=== PATIENT | female | born 1945 | race Caucasian/White ===

== ENCOUNTER 2020-03-18 11:31 | Outpatient (CLI) | payer MEDICARE, BC ==
[~2020-03-18 11:31] MED LIST: ASPI-524 PO; ERGO500014 PO; GLUC1CAP69 PO; LACT1CAP61 PO; [UNRECOGNIZED DRUG - CODE] PO
== END 2020-03-18 23:59 | disposition home or self-care (01) ==
LOC: RAD 11:31
DX: R91.8 Other nonspecific abnormal finding of lung field (principal); I77.810 Thoracic aortic ectasia; M47.819 Spondylosis without myelopathy or radiculopathy, site unspecified
CPT/HCPCS: 71046

== ENCOUNTER 2020-12-17 14:11 | Emergency (ER) | payer MEDICARE, BC ==
[~2020-12-17] VITALS: Ht 157.5 cm; Wt 65.8 kg
--- NOTE | 2020-12-17 14:25 | NUR ---
CALLED IN ED WAITING ROOM. NO RESPONSE.
--- NOTE | 2020-12-17 14:46 | NUR ---
DR DAMICO AT THE BEDSIDE
--- NOTE | 2020-12-17 14:48 | NUR ---
CODE STROKE ACTIVATED
--- NOTE | 2020-12-17 14:48 | NUR ---
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 DENIES HEAD INJURY. ATTACHED TO THE MONITOR.
--- NOTE | 2020-12-17 14:54 | NUR ---
PATIENT TAKEN TO CT
[2020-12-17] MEDS ORDERED: IOHEXOL-350 100 ML VIAL IV ONE (14:55)
[2020-12-17] MEDS ORDERED: IV NS 0.9% 250 ML IV ONE (14:56)
[2020-12-17] MEDS ORDERED: CT SWABBABLE VALVE TRANS SET 1 EA INFUS.SET MC ONE (14:56)
[2020-12-17 14:58] LABS: BASOPHILS # (AUTO) 0.1 K/uL (0.0-0.2); BASOPHILS % (AUTO) 0.9 % (0.0-2.0); HEMATOCRIT 41 % (33-45); HEMOGLOBIN 13.3 g/dL (11.5-14.8); LYMPHOCYTES # (AUTO) 2.5 K/uL (0.8-4.8); LYMPHOCYTES % (AUTO) 35.6 % (20.0-44.0); MEAN CORPUSCULAR HGB CONC 33 g/dl (31.0-36.0); MEAN CORPUSCULAR VOLUME 95 fL (82-100); MONOCYTES # (AUTO) 0.6 K/uL (0.1-1.30); MONOCYTES % (AUTO) 8.4 % (2.0-12.0); NEUTROPHILS # (AUTO) 3.8 K/uL (1.8-8.9); NEUTROPHILS % (AUTO) 53.1 % (43.0-81.0); PLATELET COUNT (AUTO) 242 K/uL (150-450); RED BLOOD CELL COUNT(AUTO) 4.28 MIL/uL (4.0-5.2); WHITE BLOOD COUNT (AUTO) 7.1 K/uL (4.3-11.0)
[2020-12-17 15:09] LABS: CALCIUM, SERUM 9.1 mg/dL (8.5-10.1); CARBON DIOXIDE 27 mmol/L (21-32); CHLORIDE 107 mmol/L (98-107); CREATININE 0.7 mg/dL (0.6-1.3); GLUCOSE 97 mg/dL (74-106); POTASSIUM 4.2 mmol/L (3.5-5.1); SODIUM SERUM 144 mmol/L (136-145); UREA NITROGEN, BLOOD 18 mg/dL (7-18)
--- NOTE | 2020-12-17 15:09 | NUR ---
DR HOYOS (NEURO) ASSESSING THE PATIENT.
--- NOTE | 2020-12-17 15:09 | NUR ---
THE PATIENT IS BACK FROM CT
--- NOTE | 2020-12-17 15:29 | NUR ---
THE PATIENT REFUSES VITAL SIGNS CHECK DESPITE EXPLAINING RISKS AND BENEFITS.
--- NOTE | 2020-12-17 16:13 | NUR ---
THE PATIENT REFUSES VITAL SIGNS CHECK DESPITE EXPLAINING RISKS AND BENEFITS
[2020-12-17 16:56] LABS: CHOLESTEROL 255 mg/dL (<200); HDL CHOLESTEROL 114 mg/dL (40-60); LDL 125 mg/dL (0-99); TRIGLYCERIDES 55 mg/dL (30-150)
--- NOTE | 2020-12-17 17:22 | NUR ---
THE PATIENT REFUSES VITAL SIGNS CHECK DESPITE EXPLAINING RISKS AND BENEFITS
--- NOTE | 2020-12-17 17:59 | NUR ---
Patient eloped from facility. Dr. Calero notified.
[2020-12-17 18:00] VITALS: BP 121/49
== END 2020-12-17 18:00 | disposition left against medical advice (07) ==
LOC: ER 14:13
DX: G45.9 Transient cerebral ischemic attack, unspecified (principal); R00.1 Bradycardia, unspecified; J18.9 Pneumonia, unspecified organism; Z20.822 Contact with and (suspected) exposure to COVID-19; Z53.29 Procedure and treatment not carried out because of patient's decision for other reasons; Z79.82 Long term (current) use of aspirin; Z88.5 Allergy status to narcotic agent; Z88.0 Allergy status to penicillin; Z88.8 Allergy status to other drugs, medicaments and biological substances; Z90.710 Acquired absence of both cervix and uterus; Z85.42 Personal history of malignant neoplasm of other parts of uterus; I48.91 Unspecified atrial fibrillation; G47.30 Sleep apnea, unspecified; M06.9 Rheumatoid arthritis, unspecified; Z91.81 History of falling
CPT/HCPCS: 36415; 70450; 70496; 70498; 71045; 80048; 80061; 82962; 84484; 85025; 85730; 87426; 93005; 99291; J7050; Q9967; C9803

== ENCOUNTER 2022-10-17 19:16 | Emergency (ER) | payer MEDICARE, BC ==
[~2022-10-17] VITALS: Ht 157.5 cm; Wt 68.9 kg
[2022-10-17 19:55] LABS: BASOPHILS # (AUTO) 0.1 K/uL (0.0-0.2); BASOPHILS % (AUTO) 1.3 % (0.0-2.0); EOSINOPHILS # (AUTO) 1.2 K/uL (0.0-0.7); EOSINOPHILS % (AUTO) 12.8 % (0.0-6.0); HEMATOCRIT 40 % (33-45); HEMOGLOBIN 13.1 g/dL (11.5-14.8); LYMPHOCYTES # (AUTO) 3.5 K/uL (0.8-4.8); LYMPHOCYTES % (AUTO) 37.6 % (20.0-44.0); MEAN CORPUSCULAR HEMOGLOBIN 30 PG (26.0-33.0); MEAN CORPUSCULAR HGB CONC 33 g/dl (31.0-36.0); MEAN CORPUSCULAR VOLUME 93 fL (82-100); MONOCYTES # (AUTO) 0.6 K/uL (0.1-1.30); MONOCYTES % (AUTO) 6.6 % (2.0-12.0); NEUTROPHILS # (AUTO) 3.8 K/uL (1.8-8.9); NEUTROPHILS % (AUTO) 41.7 % (43.0-81.0); PLATELET COUNT (AUTO) 230 K/uL (150-450); RED BLOOD CELL COUNT(AUTO) 4.32 MIL/uL (4.0-5.2); RED CELL DISTRIBUTION WIDTH 14.4 % (11.5-15.0); WHITE BLOOD COUNT (AUTO) 9.2 K/uL (4.3-11.0)
[2022-10-17 20:06] LABS: CALCIUM, SERUM 9.5 mg/dL (8.5-10.1); CARBON DIOXIDE 25 mmol/L (21-32); CHLORIDE 105 mmol/L (98-107); CREATININE 0.7 mg/dL (0.6-1.3); GLUCOSE 156 mg/dL (74-106); SODIUM SERUM 139 mmol/L (136-145); UREA NITROGEN, BLOOD 21 mg/dL (7-18)
[2022-10-17 20:20] LABS: ALANINE AMINOTRANSFERASE 23 U/L (12-78); ALBUMIN 3.5 g/dL (3.4-5.0); ALKALINE PHOSPHATASE 103 U/L (46-116); ASPARTATE AMINOTRANSFERASE 15 U/L (15-37); BILIRUBIN,DIRECT 0.1 mg/dL (0.0-0.2); BILIRUBIN,TOTAL 0.3 mg/dL (0.2-1.0); NT-PRO BNP 507 pg/mL (0-125); TOTAL PROTEIN, SERUM 6.6 g/dL (6.4-8.2)
[2022-10-17 22:19] VITALS: BP 115/71; TEMP 97.9; O2SAT 98
== END 2022-10-17 22:20 | disposition home or self-care (01) ==
LOC: ER 19:17
DX: R42 Dizziness and giddiness (principal); I48.91 Unspecified atrial fibrillation; M06.9 Rheumatoid arthritis, unspecified; Z90.710 Acquired absence of both cervix and uterus; Z88.0 Allergy status to penicillin; Z88.8 Allergy status to other drugs, medicaments and biological substances
CPT/HCPCS: 36415; 70450-TC; 71045-TC; 80048-TC; 80076-TC; 82962-TC; 83880; 84484-TC; 85025-TC

== ENCOUNTER 2023-03-07 18:37 | Emergency (ER) | payer MEDICARE, BC | END 2023-03-07 19:21 | disposition left against medical advice (07) | LOC: ER 18:42 | DX: R00.2 Palpitations (principal); Z53.21 Procedure and treatment not carried out due to patient leaving prior to being seen by health care provider ==